=== PATIENT | female | born 1990 | race Caucasian/White ===

== ENCOUNTER 2017-03-08 01:57 | Inpatient (IN) | payer MEDICAID ==
[~2017-03-08] VITALS: Ht 167.6 cm; Wt 72.6 kg
[2017-03-08 01:57] VITALS: BP_SYST 150
[2017-03-08] MEDS ORDERED: NACL 0.9% 1,000 ML IV ONE (02:15)
[2017-03-08 02:54] LABS: BASOPHILS # (AUTO) 0.1 K/uL (0.0-0.2); BASOPHILS % (AUTO) 0.8 % (0.0-2.0); EOSINOPHILS % (AUTO) 0.3 % (0.0-4.0); HEMATOCRIT 38.8 % (36-48); HEMOGLOBIN 12.7 g/dL (12.0-16.0); LYMPHOCYTES # (AUTO) 1.1 K/uL (1.0-5.5); LYMPHOCYTES % (AUTO) 12.3 % (20.5-51.5); MEAN CORPUSCULAR HEMOGLOBIN 27 pg (27-31); MEAN CORPUSCULAR HGB CONC 33 % (32-36); MEAN CORPUSCULAR VOLUME 84 fL (79.0-98.0); MONOCYTES # (AUTO) 0.3 K/uL (0.0-1.0); MONOCYTES % (AUTO) 3.7 % (1.7-9.3); NEUTROPHILS # (AUTO) 7.7 K/uL (1.8-7.7); NEUTROPHILS % (AUTO) 82.9 % (40.0-70.0); PLATELET COUNT (AUTO) 199 K/uL (130-430); RED BLOOD CELL COUNT(AUTO) 4.64 MIL/uL (4.2-6.2); RED CELL DISTRIBUTION WIDTH 12.6 % (9.0-15.0); WHITE BLOOD COUNT (AUTO) 9.2 K/uL (4.8-10.8)
[2017-03-08 03:01] LABS: CALCIUM 7.8 mg/dL (8.4-11.0); CREATININE 0.59 mg/dL (0.55-1.30); POTASSIUM 3.8 mmol/L (3.5-5.1)
[2017-03-08 03:05] LABS: ALBUMIN 3.4 g/dL (3.4-4.8); TOTAL BILIRUBIN 0.1 mg/dL (0.0-1.0); TOTAL PROTEIN, SERUM 6.9 g/dL (6.4-8.3)
[2017-03-08] MEDS ORDERED: LORazepam 2 MG/ML VIAL (FOR ER USE) IVP ONE (03:15)
[2017-03-08] MEDS ORDERED: LORazepam 2 MG/ML VIAL (FOR ER USE) ONE (03:20)
[2017-03-08 03:43] LABS: BARBITURATE, URINE NEGATIVE (NEG <=200); BENZODIAZEPINE, URINE NEGATIVE (NEG <=150); CANNABINOID, URINE NEGATIVE (NEG <=50); COCAINE, URINE NEGATIVE (NEG <=150); METHAMPHETAMINES SCREEN,URINE NEGATIVE (NEG <=500); OPIATE, URINE NEGATIVE (NEG <=100); PHENCYCLIDINE SCREEN,URINE NEGATIVE (NEG <=25); UR TRICYCLIC ANTIDEPRESSANTS NEGATIVE (NEG <=300); URINE AMPHETAMINE NEGATIVE (NEG <=500); URINE METHADONE NEGATIVE (NEG <=200); URINE OXYCODONE SCREEN NEGATIVE (NEG <=100); URINE PROPOXYPHENE SCREEN NEGATIVE (NEG <=300)
[2017-03-08] MEDS ORDERED: AMMONIA INHALANT 0.3mL AMPUL INH ONE (07:29)
[2017-03-08] MEDS ORDERED: ESCI10TA PO (08:06)
[2017-03-08 08:25] VITALS: BP_SYST 116
[2017-03-08] MEDS ORDERED: FOLIC ACID 1 MG, THIAMINE HCL 100 MG, MAGNESIUM SULFATE 1 GM, MVI 10 ML in NACL 0.9% 1,... IV SCH (11:00)
[2017-03-08 12:51] VITALS: BP_SYST 107
[2017-03-08 16:02] VITALS: BP_SYST 129
[2017-03-08 20:00] VITALS: BP_SYST 131
[2017-03-09] VITALS (7 sets, daily range): BP systolic 110–133
[2017-03-09 07:13] LABS: BASOPHILS % (AUTO) 0.5 % (0.0-2.0); EOSINOPHILS # (AUTO) 0.1 K/uL (0.0-0.4); EOSINOPHILS % (AUTO) 1.9 % (0.0-4.0); HEMATOCRIT 35.8 % (36-48); HEMOGLOBIN 11.7 g/dL (12.0-16.0); LYMPHOCYTES # (AUTO) 1.7 K/uL (1.0-5.5); LYMPHOCYTES % (AUTO) 31.1 % (20.5-51.5); MEAN CORPUSCULAR HEMOGLOBIN 27 pg (27-31); MEAN CORPUSCULAR HGB CONC 33 % (32-36); MEAN CORPUSCULAR VOLUME 83 fL (79.0-98.0); MONOCYTES # (AUTO) 0.4 K/uL (0.0-1.0); NEUTROPHILS # (AUTO) 3.1 K/uL (1.8-7.7); NEUTROPHILS % (AUTO) 59.5 % (40.0-70.0); PLATELET COUNT (AUTO) 192 K/uL (130-430); RED BLOOD CELL COUNT(AUTO) 4.32 MIL/uL (4.2-6.2); RED CELL DISTRIBUTION WIDTH 12.9 % (9.0-15.0)
[2017-03-09 07:20] LABS: ALBUMIN 2.8 g/dL (3.4-4.8); CALCIUM 7.7 mg/dL (8.4-11.0); CREATININE 0.56 mg/dL (0.55-1.30); POTASSIUM 3.9 mmol/L (3.5-5.1); TOTAL BILIRUBIN 0.2 mg/dL (0.0-1.0); TOTAL PROTEIN, SERUM 5.7 g/dL (6.4-8.3)
[2017-03-09 07:22] LABS: WHITE BLOOD COUNT (AUTO) 5.3 K/uL (4.8-10.8)
[2017-03-09] MEDS: FOLIC ACID 1 MG, THIAMINE HCL 100 MG, MAGNESIUM SULFATE 1 GM, MVI 10 ML in NACL 0.9% 1,... IV SCH ×2 (09:02→22:32)
[2017-03-09] MEDS: LORazepam 2 MG/ML VIAL IVP PRN ×2 (09:03→13:29)
[2017-03-10] VITALS: BP_SYST 125
[2017-03-10 04:30] VITALS: BP_SYST 122
[2017-03-10 08:00] VITALS: BP_SYST 131
[2017-03-10] MEDS: FOLIC ACID 1 MG, THIAMINE HCL 100 MG, MAGNESIUM SULFATE 1 GM, MVI 10 ML in NACL 0.9% 1,... IV SCH (08:58)
[2017-03-10 12:00] VITALS: BP_SYST 130
[2017-03-10 12:21] VITALS: BP_SYST 128
== END 2017-03-10 13:50 | disposition home or self-care (01) | DRG 775 ==
LOC: SED 02:18 → STU 07:37 → SMU 03-09 10:22
PROVIDERS: ATTEND Internal Medicine Hospice and Palliative Medicine
DX: F10.229 Alcohol dependence with intoxication, unspecified (principal); G92 Toxic encephalopathy; F32.9 Major depressive disorder, single episode, unspecified; Y90.6 Blood alcohol level of 120-199 mg/100 ml; G43.909 Migraine, unspecified, not intractable, without status migrainosus
CPT/HCPCS: 36415; 70450-TC; 72125-TC; 80053; 80307; 85025; 93005; 96361; 96374; 96375; 99285; G0480; G0481; G0482; J2060; J3411; J3475; J3490; J7030